=== PATIENT | female | born 1950 | race Two or more races ===

== ENCOUNTER 2017-10-24 08:23 | Outpatient (CLI) | payer OTHER | END 2017-10-24 08:47 | disposition home or self-care (01) | LOC: MAMO-SONO 08:23 | DX: Z12.31 Encounter for screening mammogram for malignant neoplasm of breast (principal); N61.0 Mastitis without abscess; R10.2 Pelvic and perineal pain ==

== ENCOUNTER 2020-12-22 08:11 | Outpatient (CLI) | payer OTHER | END 2020-12-22 08:12 | disposition home or self-care (01) | LOC: LAB 08:11 | PROVIDERS: ATTEND Obstetrics & Gynecology | DX: N39.0 Urinary tract infection, site not specified (principal); E56.1 Deficiency of vitamin K; E55.9 Vitamin D deficiency, unspecified ==

== ENCOUNTER 2020-12-22 10:34 | Outpatient (CLI) | payer OTHER | END 2020-12-22 11:05 | disposition home or self-care (01) | LOC: MAMO-SONO 10:34 | PROVIDERS: ATTEND Obstetrics & Gynecology | DX: N64.4 Mastodynia (principal); M81.0 Age-related osteoporosis without current pathological fracture; N84.0 Polyp of corpus uteri; Z12.31 Encounter for screening mammogram for malignant neoplasm of breast ==

== ENCOUNTER 2021-03-11 14:10 | Outpatient (CLI) | payer OTHER | END 2021-03-11 14:17 | disposition home or self-care (01) | LOC: NUCLEAR 14:10 | PROVIDERS: ATTEND Obstetrics & Gynecology | DX: M81.0 Age-related osteoporosis without current pathological fracture (principal) ==

== ENCOUNTER 2021-04-24 11:38 | Emergency (ER) | payer OTHER ==
[~2021-04-24] VITALS: Ht 157.5 cm; Wt 54.4 kg
[2021-04-24] MEDS ORDERED: TESSALON PERLE100 M1 PO (17:31)
== END 2021-04-24 18:48 | disposition home or self-care (01) ==
LOC: ER 11:38
DX: R53.81 Other malaise (principal); R05.9 Cough, unspecified; R09.81 Nasal congestion; Z03.818 Encounter for observation for suspected exposure to other biological agents ruled out

== ENCOUNTER 2022-02-14 12:45 | Emergency (ER) | payer OTHER | END 2022-02-14 17:17 | disposition home or self-care (01) | LOC: ER 12:45 | DX: M25.561 Pain in right knee (principal); M17.11 Unilateral primary osteoarthritis, right knee ==

== ENCOUNTER 2022-10-27 14:16 | Outpatient (CLI) | payer OTHER ==
[~2022-10-27 14:16] MED LIST: TESSALON PERLE100 M1 PO
== END 2022-10-27 14:34 | disposition home or self-care (01) ==
LOC: TOM 14:16
DX: J30.9 Allergic rhinitis, unspecified (principal); J34.3 Hypertrophy of nasal turbinates; J34.2 Deviated nasal septum; J32.0 Chronic maxillary sinusitis; J32.2 Chronic ethmoidal sinusitis; S06.0X1A Concussion with loss of consciousness of 30 minutes or less, initial encounter; J20.9 Acute bronchitis, unspecified

== ENCOUNTER 2022-10-27 15:38 | Outpatient (CLI) | payer OTHER | END 2022-10-27 15:44 | disposition home or self-care (01) | LOC: LAB 15:38 | DX: R06.02 Shortness of breath (principal); R05.8 Other specified cough; R50.9 Fever, unspecified ==

== ENCOUNTER 2022-12-11 09:49 | Outpatient (CLI) | payer OTHER | END 2022-12-11 09:55 | disposition home or self-care (01) | LOC: MAMO-SONO 09:49 | DX: R10.2 Pelvic and perineal pain (principal); N64.4 Mastodynia; Z12.31 Encounter for screening mammogram for malignant neoplasm of breast ==

== ENCOUNTER 2023-04-27 10:08 | Outpatient (CLI) | payer OTHER ==
[2023-04-27 14:05] LABS: MYCOPLASMA PNEUMONIAE IGM NON REACTIVE (NO REACTIVE)
== END 2023-04-27 11:22 | disposition home or self-care (01) ==
LOC: LAB 10:08
DX: Z20.828 Contact with and (suspected) exposure to other viral communicable diseases (principal); J10.1 Influenza due to other identified influenza virus with other respiratory manifestations; B96.0 Mycoplasma pneumoniae [M. pneumoniae] as the cause of diseases classified elsewhere; R09.89 Other specified symptoms and signs involving the circulatory and respiratory systems

== ENCOUNTER 2023-08-17 13:11 | Outpatient (CLI) | payer OTHER ==
[2023-08-17 15:13] LABS: MYCOPLASMA PNEUMONIAE IGM NON REACTIVE (NO REACTIVE)
== END 2023-08-17 13:15 | disposition home or self-care (01) ==
LOC: LAB 13:11
DX: Z20.828 Contact with and (suspected) exposure to other viral communicable diseases (principal)

== ENCOUNTER → 2023-09-05 12:48 | Outpatient (CLI) | payer OTHER ==
[2023-09-05 13:28] LABS: PH,URINE 6.5 (5.0-8.0); URINE APPEARANCE Clear; URINE BILIRRUBIN Negative (NEGATIVE); URINE BLOOD Trace; URINE COLOR Yellow; URINE GLUCOSE Negative (NEGATIVE); URINE LEUKOCYTE Moderate; URINE NITRATE Negative; URINE PROTEIN Negative (NEGATIVE); URINE UROBILINOGEN 0.2 E.U./dl
[2023-09-05 13:29] LABS: HEMATOCRIT 41.1 % (36.0-45.00); MEAN CELL VOLUME 93.4 fL (80.00-100.00); MEAN CORPUSCULAR HEMOGLOBIN 31.9 pg (27.00-32.0); MEAN CORPUSCULAR HGB CONC 34.2 g/dl (32.0-36.0); PLATELET COUNT 266 K/uL (150-450); RED CELL DISTRIBUTION WIDTH 12.4 % (11.5-14.5); URINE BACTERIA 264.5 uL (0.0-1933); URINE EPITHELIAL CELLS 11.9 uL (0.0-38.8); URINE RBC 6.4 uL (0.0-20.8); URINE WBC 283.9 uL (0.0-23.2)
[2023-09-05 14:17] LABS: ALBUMIN 3.9 gm/dL (3.4-5.0); BILIRUBIN TOTAL 0.49 mg/dL (0.3-1.2); CALCIUM 9.3 mg/dL (8.5-10.1); CHOL HDL RATIO 2.5 (0-5.0); CREATININE SERUM 0.72 mg/dL (0.55-1.02); GFR 79.4; GLOBULINA 2.9 G/DL (2.4-3.5); POTASSIUM 3.9 mEq/L (3.5-5.1); TOTAL PROTEIN 6.8 gm/dL (6.4-8.2); TSH 1.46 uIU/mL (0.358-3.74)
[2023-09-07 09:12] LABS: FOLLICLE STIMULATING HORMONE 66.1 mIU/mL (25.8-134.8)
[2023-09-08 19:10] LABS: test free 0.7 pg/mL (0.0-4.2)
== END | disposition home or self-care (01) ==
LOC: LAB 12:48
PROVIDERS: ATTEND Obstetrics & Gynecology Gynecology
DX: R53.82 Chronic fatigue, unspecified (principal); E78.5 Hyperlipidemia, unspecified; E55.9 Vitamin D deficiency, unspecified; A64 Unspecified sexually transmitted disease; N95.1 Menopausal and female climacteric states; D50.9 Iron deficiency anemia, unspecified; E11.9 Type 2 diabetes mellitus without complications; L00-L99 Diseases of the skin and subcutaneous tissue

== ENCOUNTER 2024-04-10 13:44 | Outpatient (CLI) | payer OTHER | END 2024-04-10 13:50 | disposition home or self-care (01) | LOC: MAMO-SONO 13:44 | PROVIDERS: ATTEND Obstetrics & Gynecology Gynecology | DX: N64.4 Mastodynia (principal); N64.9 Disorder of breast, unspecified; Z12.31 Encounter for screening mammogram for malignant neoplasm of breast ==